=== PATIENT | female | born 1960 | race Caucasian/White ===

== ENCOUNTER 2024-01-26 15:01 | Emergency (ER) | payer BC, SELFPAY ==
[2024-01-26 15:06] VITALS: BP 118/78; PULSE 78; RESP 18; TEMP 36.6; O2SAT 94; BMI 36.8
--- NOTE | 2024-01-26 15:26 | US_ITS ---
Patient: ADOLFO STUART Facility:?[facility] Patient ID:?[id number] Site Patient [id number]:?[id number]. Site :?[id number] Study:?US-Abdomen RUQ-01/26/2024 4:14:05 PM Ordering Physician:MEHDI RIVERA M.D. Final Report: Indication: Right upper quadrant pain Technique: Right upper quadrant ultrasound utilizing grayscale and color flow techniques. Comparison: None. Findings: Pancreas: Partially visualized portions are grossly unremarkable. Aorta: Visualized aorta is normal in caliber. Liver: 18 centimeters in length with diffusely increased echogenicity. Gallbladder: No stones, gallbladder thickening or pericholecystic fluid. Common bile duct: 4 millimeters. Right kidney: 12 centimeters in length with normal cortical thickness and no hydronephrosis. 18 millimeter simple cyst is noted superiorly. Impression: Mild hepatomegaly with diffusely increased hepatic echogenicity is compatible with infiltrative etiologies, most commonly hepatic steatosis. Dictated by Eddie Neri MD @ 01/26/2024 4:48:46 PM Signed by:?Eddie Neri MD @01/26/2024 4:48:46 PM (Electronic Signature)
[2024-01-26 15:58] LABS: Basophils Absolute Auto 0.02 K/uL (0.00-0.30); Basophils Percent Auto 0.3 % (0.0-3.0); Eosinophils Absolute Auto 0.24 K/uL (0.00-0.50); Eosinophils Percent Auto 3.8 % (0.0-7.0); Hematocrit 40.6 % (33.0-51.0); Hemoglobin* 13.6 gm/dL (12.0-16.0); Immature Granulocytes Abs Auto 0.01 K/uL (0.00-0.30); Immature Granulocytes Pct Auto 0.2 %; Lymphocytes Percent Auto 28.6 % (20-44); Mean Corpuscular HGB Conc 34 gm/dL (32-36); Mean Corpuscular Hemoglobin 31 pg (26-34); Mean Corpuscular Volume 91 fL (80-100); Monocytes Percent Auto 4.6 % (0.0-11.0); Neutrophils Absolute Auto 3.94 K/uL (1.7-7.0); Neutrophils Percent Auto 62.5 % (42.0-72.0); Platelet Count* 230 K/uL (140-440); RDW Coefficient of Variation % 12.6 % (11.5-15.5); Red Blood Count 4.44 m/uL (4.00-5.20)
[2024-01-26 16:00] LABS: Slide Review Reflex No
[2024-01-26 16:15] LABS: Chloride* 105 mmol/L (96-114); Potassium* 3.9 mmol/L (3.6-5.1); Sodium* 138 mmol/L (135-149)
[2024-01-26 16:17] LABS: Albumin* 4.5 g/dL (3.3-5.0)
[2024-01-26 16:18] LABS: Creatinine* 0.7 mg/dL (0.5-1.5); Estimated Glomerular Filt Rate 97 ml/min
[2024-01-26 16:19] LABS: Anion Gap 10 mEq/L (7-15); Bilirubin Total* 0.8 mg/dL (0.1-1.5); Blood Urea Nitrogen* 17 mg/dL (7-30); Calcium* 9.8 mg/dL (8.4-10.6); Carbon Dioxide* 23 mmol/L (20-32); Glucose* 101 mg/dL (60-115); Total Protein* 7.7 g/dL (6.0-8.3)
[2024-01-26 16:20] LABS: Alanine Aminotransferase* 30 U/L (4-35); Alkaline Phosphatase* 61 U/L (40-150); Aspartate Amino Transferase* 24 U/L (12-35); Lipase* 60 U/L (23-300)
[2024-01-26 16:22] LABS: C Reactive Protein* 1.7 mg/dL (0.5-1.0)
--- NOTE | 2024-01-26 16:34 | ED.GENADULT ---
HPI - General Adult General Date Seen: 01/26/24 Chief complaint: Abdominal Pain Stated complaint: Gallbladder issue Time Seen by Provider: 01/26/24 15:13 Source: patient, RN notes reviewed and other Mode of arrival: ambulatory Limitations: no limitations History of Present Illness HPI narrative: Patient is a 63-year-old, generally healthy woman who presents for evaluation of epigastric pain which started last night. She says that she was getting ready to go to bed around 11:00 p.m. when she 1st noticed it. It woke her from sleep at around 2:00 a.m.. She says initially she thought she might have to wake up her but then it settled back down. She was able to fall back asleep, woke up again due to pain about an hour and half later. She did go to work today, but pain is been intermittently severe enough that she decided she better get checked out. It waxes and wanes, at times it is not too bad but it has never gone completely away. She was seen in urgent care then referred here for further evaluation. She has had nausea, no vomiting. Reports normal stools. No fevers. She does have a remote history of GERD or gastric ulcers, nothing that is been a problem recently. She did have any injury recently however and has been taking more nonsteroidals than usual. She does not drink significant alcohol. She has a history of , no other abdominal surgeries. No chest pain or difficulty breathing. She does not smoke. Related Data Home Medications Medication Instructions Recorded Confirmed aspirin 81 mg capsule 81 mg PO QDAY 01/26/24 01/26/24 cetirizine 10 mg tablet 10 mg PO QDAY PRN 01/26/24 01/26/24 fluticasone furoate 27.5 1 spray intranasal QDAY 01/26/24 01/26/24 mcg/actuation nasal spray,suspension (Flonase Sensimist) lisinopril 10 mg tablet 10 mg PO QDAY 01/26/24 01/26/24 Previous Rx's Medication Instructions Recorded omeprazole 40 mg capsule,delayed 40 mg PO DAILY #14 caps 01/26/24 release Allergies Allergy/AdvReac Type Severity Reaction Status Date / Time No Known Drug Allergies Allergy Verified 01/26/24 14:09 Review of Systems Status of ROS: Reports: 10 or more systems reviewed and unremarkable except as noted in History and below [facility] Social History Smoking Status: Never smoker Do you use any of these nicotine containing products: None How often do you have a drink containing alcohol: never How often do you have six or more drinks on one occasion: Never AUDIT-C Alcohol total score: 0 Non-prescribed substance use: denies use service: No Exam Narrative: Exam Narrative: Vital signs as noted above. In general, an alert, well-appearing patient. Head: Normocephalic, atraumatic. Eyes: Pupils are equal reactive. Extraocular movements are full. Conjunctivae are normal. ENT: Mucous membranes are moist. Neck: Supple without lymphadenopathy. Heart: Regular rate and rhythm. No murmur or rub. Lungs: Clear bilaterally. No increased work of breathing, crackles or wheezes. Abdomen: Soft and nondistended. Epigastric and right upper quadrant tenderness without rebound guarding or rigidity. Negative Cota's. Extremities: Well perfused. No edema. No calf tenderness. Pulses intact. Neurologic: Patient is alert and oriented to person and place. Speech is fluent. Face is symmetric. Moves all extremities equally. Affect: Normal. Skin: Warm and dry. Well perfused. Const: Vital Signs, click to edit/add: Vital Signs - 24 hr 01/26/24 15:06 Temperature 97.9 F Pulse Rate [Right Pulse Oximeter] 78 Respiratory Rate 18 Blood Pressure [Ri ght Upper Arm] 118/78 Pulse Oximetry 94 Oxygen Delivery Me thod Room Air Documenting provider has reviewed patient's vital signs: yes Course Course ED Course: Will obtain ultrasound and labs. Diagnostic considerations include gastritis, peptic ulcer disease, gastroesophageal reflux, cholecystitis, biliary colic, pancreatitis among others. I do not think this is cardiac. Declines the need for anything for pain at this time. Ultrasound read by Radiology is entirely negative aside from hepatic steatosis. Labs notable for normal white blood cell count, normal metabolic panel, normal LFTs. CRP minimally elevated at 1.7. Lipase is 60. Reviewed all this with her. I think the likelihood of this representing biliary disease is relatively low, though we discussed if she has persistent symptoms HIDA scan could be considered. Nothing today to suggest cholecystitis. I do think given her recent uptake in and said that it would be reasonable to treat her with omeprazole to see if this is related to gastritis or peptic ulcer. Recommended 40 mg daily for the next couple weeks. Primary care follow-up within the next week for recheck. Return any time for severe uncontrolled pain, new symptoms such as fever, vomiting etcetera. Vital Signs Vital signs: Initial Vital Signs Temperature 97.9 F 01/26/24 15:06 Temperature Source Temporal Artery Scan 01/26/24 15:06 Pulse Rate 78 01/26/24 15:06 Pulse Rhythm Regular 01/26/24 15:06 Pulse Strength 3+ Normal 01/26/24 15:06 Respiratory Rate 18 01/26/24 15:06 Blood Pressure 118/78 01/26/24 15:06 Blood Pressure Mean 91 01/26/24 15:06 Blood Pressure Position Sitting 01/26/24 15:06 Pulse Oximetry 94 01/26/24 15:06 Oxygen Delivery Method Room Air 01/26/24 15:06 Vital Signs Temperature 97.9 F 01/26/24 15:06 Pulse Rate 78 01/26/24 15:06 Respiratory Rate 18 01/26/24 15:06 Blood Pressure 118/78 01/26/24 15:06 Pulse Oximetry 94 01/26/24 15:06 Oxygen Delivery Method Room Air 01/26/24 15:06 Temperature 97.9 F 01/26/24 15:06 Pulse Rate 78 01/26/24 15:06 Respiratory Rate 18 01/26/24 15:06 Blood Pressure 118/78 01/26/24 15:06 Pulse Oximetry 94 01/26/24 15:06 Oxygen Delivery Method Room Air 01/26/24 15:06 Medical Decision Making Lab Data Labs: Lab Results 01/26/24 Range/Units 15:38 WBC 6.30 (4.50-11.00) K/uL RBC 4.44 (4.00-5.20) m/uL Hgb 13.6 (12.0-16.0) gm/dL Hct 40.6 (33.0-51.0) % MCV 91 (80-100) fL MCH 31 (26-34) pg MCHC 34 (32-36) gm/dL RDW Coeff of Jose Miguel 12.6 (11.5-15.5) % Plt Count 230 (140-440) K/uL Neut % (Auto) 62.5 (42.0-72.0) % Lymph % (Auto) 28.6 (20-44) % [place] % (Auto) 4.6 (0.0-11.0) % Eos % (Auto) 3.8 (0.0-7.0) % Baso % (Auto) 0.3 (0.0-3.0) % Neut # (Auto) 3.94 (1.7-7.0) K/uL Lymph # (Auto) 1.80 (0.90-2.90) K/uL [place] # (Auto) 0.30 (0.00-0.90) K/UL Eos # (Auto) 0.24 (0.00-0.50) K/uL Baso # (Auto) 0.02 (0.00-0.30) K/uL Abs Immat Gran (auto) 0.01 (0.00-0.30) K/uL Imm/Tot Granulo (auto) 0.2 % Sodium 138 (135-149) mmol/L Potassium 3.9 (3.6-5.1) mmol/L Chloride 105 (96-114) mmol/L Carbon Dioxide 23 (20-32) mmol/L Anion Gap 10 (7-15) mEq/L BUN 17 (7-30) mg/dL Creatinine 0.7 (0.5-1.5) mg/dL Estimated Creat Clear 56.00 Estimated GFR 97 ml/min Glucose 101 (60-115) mg/dL Calcium 9.8 (8.4-10.6) mg/dL Total Bilirubin 0.8 (0.1-1.5) mg/dL Direct Bilirubin 0.0 (0.0-0.5) mg/dL AST 24 (12-35) U/L ALT 30 (4-35) U/L Alkaline Phosphatase 61 (40-150) U/L C-Reactive Protein 1.7 H (0.5-1.0) mg/dL Total Protein 7.7 (6.0-8.3) g/dL Albumin 4.5 (3.3-5.0) g/dL Lipase 60 (23-300) U/L Discharge Plan Discharge Clinical Impression: Abdominal pain Patient Disposition: Home, Self-Care Condition: Stable Instructions: Gastritis (DC), Abdominal Pain (ED) Additional Instructions: I would recommend a trial of Prilosec, 40 mg daily for a couple of weeks. Your ultrasound is completely normal. Your labs are reassuring as well. There is nothing to suggest that symptoms are related to her gallbladder. However, please follow-up with your primary care clinic in the next week and if you do not improve with Prilosec, it may be reasonable to do another test called a HIDA scan to evaluate your gallbladder. Return at any time for severe pain, new symptoms such as fevers, vomiting, black or bloody stool etcetera. Prescriptions: New omeprazole 40 mg capsule,delayed release(DR/EC) 40 mg PO DAILY Qty: 14 2RF No Action lisinopril 10 mg tablet 10 mg PO QDAY cetirizine 10 mg tablet 10 mg PO QDAY PRN Flonase Sensimist 27.5 mcg/actuation spray,suspension 1 spray intranasal QDAY Rx Instructions: into each nostril aspirin 81 mg capsule 81 mg PO QDAY Follow Up/Referrals: Angely Robledo DO [Primary Care Provider] - Stand Alone Forms: Sitrion Info Instructions
== END 2024-01-26 17:05 | disposition home or self-care (01) ==
PROVIDERS: Emergency Provider Emergency Medicine; PCP Family Medicine
DX: R10.13 Epigastric pain (principal)
CPT/HCPCS: 36415; 76705; 80048; 80076; 83690; 85025; 86140; 99283; 99284